=== PATIENT | male | born 1965 | race Caucasian/White ===

== ENCOUNTER 2017-11-21 09:20 | Day surgery (SDC) | payer BC ==
[2017-11-20 09:33] LABS: HEMATOCRIT 46.8 % (42.0-54.0); HEMOGLOBIN 16.6 g/dL (13.5-17.5); MCH 31.4 pg (26.0-34.0); MCHC 35.5 g/dL (31.0-37.0); MCV 88.5 fL (80.0-100.0); MEAN PLATELET VOLUME 12.1 fL (7.4-10.4); RBC 5.29 10x6/uL (4.20-6.10); RDW 12.4 % (11.5-14.5); WBC 6.6 10x3/uL (4.8-10.8)
[2017-11-20 09:55] LABS: CALC OSMOLALITY 287 mosm/kg (275-300); CALCIUM 9.7 mg/dL (8.5-10.1); CARBON DIOXIDE 30.7 mmol/L (21.0-32.0); CHLORIDE - SERUM 105 mmol/L (98-107); GLUCOSE 109 mg/dL (74-106); POTASSIUM - SERUM 4.5 mmol/L (3.5-5.1); SODIUM 143 mmol/L (136-145); UREA NITROGEN 17 mg/dL (7-18); eGFR NON AFRICAN AMERICAN 83 mL/min (90-120)
[~2017-11-21] VITALS: Ht 190.5 cm; Wt 102.1 kg
--- NOTE | ~2017-11-21 | OP ---
PATIENT NAME: ISABELLA PENNINGTON MEDICAL RECORD: [id number] :65 LOCATION:D.OPS ADMISSION DATE: SURGEON: ARNALDO LORENZ MD DATE OF OPERATION: 11/21/2017 PREOPERATIVE DIAGNOSES: 1. Symptomatic ventral hernia. 2. Symptomatic recurrent right inguinal hernia. POSTOPERATIVE DIAGNOSES: 1. Symptomatic incarcerated ventral hernia. 2. Symptomatic recurrent incarcerated right direct inguinal hernia. PROCEDURE: 1. Laparoscopic incarcerated ventral hernia repair with Ventralight ST mesh utilizing the Echo positioning system. 2. Open recurrent incarcerated right direct inguinal hernia repair with bilayered preperitoneal polypropylene mesh. SURGEON: Arnaldo Lorenz MD PARTY HOST/HOSTESS: None. BLOOD LOSS: Minimal. ANESTHESIA: General. COMPLICATIONS: None. The risks, possible complications and alternatives to the procedure were explained to the patient. He elects to proceed. I saw the patient in the holding area. The sites were marked. OPERATIVE COURSE: The patient was conveyed to the operating room electively on 11/21/2017. General anesthesia was induced by the anesthesia staff. The abdomen and genitals were sterilely prepped and draped. A small skin carine was accomplished in the left upper quadrant. A Veress needle was inserted through the skin carine into the peritoneal cavity. CO2 insufflation was begun. Once a sufficient pneumoperitoneum had been achieved, a 12-mm trocar was inserted through an incision in the left upper quadrant. Under direct internal vision utilizing a television camera, a 5-mm trocar was inserted in the left side of the abdomen. A 5-mm trocar was inserted in the right side of the abdomen. During the insertion of the Veress needle and all trocars, there appeared to have been no injury to the bowels, any intraperitoneal or retroperitoneal structures. An abdominal survey was undertaken. There was incarcerated preperitoneal fat within the umbilicus. Utilizing the Harmonic scalpel, I took down the falciform ligament as well as the anterior portion of the triangular ligament of the liver. I cleaned the preperitoneal fat from around the hernia defect. A prevesicular flap was created with the Harmonic scalpel. Intravenous methylene blue was given and there was no leakage of methylene blue indicating no evidence of a bladder injury. A small skin carine was accomplished within the umbilicus. I advanced a OPERATIVE REPORT [id number] ISABELLA PENNINGTON Ventralight ST mesh down through the 12-mm trocar. Through the skin carine at the umbilicus, I advanced a laparoscopic suture passer. I grasped the tail of the mesh and withdrew it up through the skin. I then cut the tubing and it was placed within the inflation device and then inflated. It expanded the mesh nicely and held it up against the anterior abdominal wall. The herniorrhaphy was then accomplished with circumferential firings of the SorbaFix Tacker. The Echo positioning system was then removed in its entirety. I ensured that all portions of the positioning system were removed. I irrigated and aspirated. There was no bleeding even at low pressure of 8. The muscle at the left upper quadrant trocar site was closed with the Juan Daniel-Estuardo suture closure device and 0 Vicryl sutures. The skin at the trocar operative sites were closed with interrupted intracuticular 3-0 Vicryls. The skin at the umbilicus was closed with interrupted 4-0 Vicryl Rapide suture. Attention was then turned to the right inguinal hernia. A transverse incision was accomplished in the right groin. Sharp dissection was carried down through skin and subcutaneous tissue as well as Roger fascia. Scarring from the prior hernia defect was identified. At no time during this operation was there any apparent nervous injury. I incised the external oblique aponeurosis along the direction of its fibers. I bluntly dissected down through the internal oblique and transversus abdominis muscle layers. A preperitoneal pocket was fashioned bluntly. There was no indirect component. There was an incarcerated direct component and the hernia contents were reduced in their entireties. Once I was satisfied with the creation of the preperitoneal pocket, I cut 2 ovals of polypropylene mesh. The 2 ovals were sutured together one on top of the other with a running #1 Surgidacs. I then placed the mesh in the preperitoneal space. Once I was satisfied with placement of the mesh in the preperitoneal space, I allowed the muscular layers to come together over the mesh. The internal oblique and transversus abdominis muscles were then sutured together with horizontal mattress 0 Surgidacs incorporating a portion of the underlying mesh. The external oblique aponeurosis was then closed with running #1 Vicryls. Roger's fascia was approximated with interrupted 3-0 Vicryls. The subdermis was approximated with interrupted 3-0 Vicryls. The skin was approximated with a running intracuticular 4-0 Vicryl. Benzoin and Steri-Strips were applied. The patient was then extubated and conveyed to the post-anesthesia care unit where he was in stable condition. He will be dismissed home on hydrocodone as well as Colace. I will see him in the office in 2-3 weeks. TRANSINT:[id number] Voice Confirmation ID: [id number] DOCUMENT ID: [id number] ARNALDO LORENZ MD at 1816 CC: ARNALDO TORRES and GABY DONOVAN [id number] DICTATION DATE: 11/22/17 1015 BATH STEWARD: 11/22/17 1217 [facility] 11/21/17 [address] [place] [address]
[~2017-11-21 09:20] MED LIST: BAYER CHEWABLE81 MG PO; BYSTOLIC5 MG PO; HYZAAR 100-12.51 TAB PO; PRILOSEC20 MG PO; SINGULAIR10 MG PO; ZANTAC300 MG PO; ZYRTEC10 MG PO
[2017-11-21 09:57] VITALS: BP 144/85; Ht 190.5 cm; Wt 102.1 kg
== END 2017-11-21 20:15 | disposition home or self-care (01) ==
LOC: D.OPS 09:20 → D.PAN 09:45 → D.OPS 09:45
PROVIDERS: Anesthesiology
DX: K43.6 Other and unspecified ventral hernia with obstruction, without gangrene (principal); K40.31 Unilateral inguinal hernia, with obstruction, without gangrene, recurrent; Z01.812 Encounter for preprocedural laboratory examination

== ENCOUNTER 2018-07-14 06:52 | Day surgery (SDC) | payer BC ==
[~2018-07-14] VITALS: Ht 190.5 cm; Wt 104.1 kg
[2018-07-14 07:23] LABS: HEMATOCRIT 45.7 % (42.0-54.0); HEMOGLOBIN 16.4 g/dL (13.5-17.5); MCH 30.9 pg (26.0-34.0); MCHC 35.9 g/dL (31.0-37.0); MCV 86.2 fL (80.0-100.0); MEAN PLATELET VOLUME 11.8 fL (7.4-10.4); RBC 5.3 10x6/uL (4.20-6.10); RDW 12.3 % (11.5-14.5); WBC 7.9 10x3/uL (4.8-10.8)
[2018-07-14 08:10] VITALS: BP 141/89; Ht 190.5 cm; Wt 104.1 kg
--- NOTE | 2018-07-14 14:50 | OP ---
PATIENT NAME: ISABELLA PENNINGTON MEDICAL RECORD: [id number] :65 LOCATION:D.OPS ADMISSION DATE: SURGEON: SUNNY LORENZ MD DATE OF OPERATION: 07/14/2018 PREOPERATIVE DIAGNOSIS: Desires screening colonoscopy. POSTOPERATIVE DIAGNOSES: 1. Desires screening colonoscopy with minimal sigmoid diverticulosis. 2. Two rectal polyps, both sessile polyps that were less than 1 cm in size. PROCEDURES: 1. Total colonoscopy to cecum. 2. Hot biopsy forceps polypectomy times 2. SURGEON: Sunny Lorenz MD ACCOUNT FINANCIAL MANAGER: None. BLOOD LOSS: Minimal. ANESTHESIA: IV sedation. COMPLICATIONS: None. The risks, possible complications, and alternatives to the procedure were explained to the patient. He elects to proceed. ENDOSCOPIC COURSE: The patient was conveyed to endoscopy suite electively on 07/14/2018. IV sedation was induced by the anesthesia staff. The patient was placed in the Herndon position. A digital rectal examination was performed. A colonoscope was inserted through the anus. It was easily advanced to the cecum. The prep was fair. I slowly withdrew the endoscope. I irrigated and aspirated extensively. I dragged the folds. A combination of normal imaging and narrow band imaging were utilized. Two polyps were noted in the rectum and both were removed in their entireties utilizing the hot biopsy forceps polypectomy technique. A retroflexed view was obtained in the rectum. I then unretroflexed the scope and removed it under direct vision. I will see the patient in my office in 2-3 weeks. If either of these polyps was an adenomatous polyp, we will plan for a repeat colonoscopy in 3 years. If there is no glandular component to these rectal polyps, then I will plan for his next colonoscopy to take place in 10 years unless he develops new symptoms such as rectal bleeding. TRANSINT:[id number] Voice Confirmation ID: [id number] DOCUMENT ID: [id number] OPERATIVE REPORT [id number] ISABELLA PENNINGTON ROBERT MD at 1450 CC: SUNNY TORRES [id number] DICTATION DATE: 07/14/18 1016 NEUROPSYCHIATRIST: 07/14/18 1050 [facility] 07/14/18 [place] [address]
--- NOTE | 2018-07-15 11:00 | HP ---
PATIENT: ISABELLA PENNINGTON MEDICAL RECORD: [id number] ACCOUNT: [id number] LOCATION:[facility] : 65 ADMISSION DATE: 07/14/18 PCP: ARNALDO NORWOOD DO HISTORY AND PHYSICAL EXAMINATION CHIEF COMPLAINT: Desires screening colonoscopy. HISTORY OF PRESENT ILLNESS: The patient had no rectal bleeding. No abdominal pain. He is here for screening colonoscopy. His primary care physician is Dr. Norwood. SOCIAL HISTORY: Nonsmoker. ALLERGIES: No known drug allergies. HOME MEDICINES: Zyrtec, Hyzaar, Prilosec, Zantac, Singulair. PAST MEDICAL AND SURGICAL HISTORY: Hypertension as well as gastroesophageal reflux. PHYSICAL EXAMINATION: GENERAL: The patient does not appear acutely ill. He does not appear chronically ill. VITAL SIGNS: Reviewed. EARS: External ears appear normal. EYES: Extraocular movements are intact. NECK: Trachea is midline. CHEST: No intercostal retractions. PULMONARY: Nonlabored, no stridor. IMPRESSION: Desires screening colonoscopy. PLAN: Will be screening colonoscopy. TRANSINT:[id number] Voice Confirmation ID: [id number] DOCUMENT ID: [id number] ARNALDO LORENZ MD at 1100 CC: ARNALDO NORWOOD [id number] DICTATION DATE: 07/14/18 0945 MILKER MACHINE: 07/14/18 1008 [facility] 07/14/18 [facility] [address] [place] [address]
== END 2018-07-14 11:05 | disposition home or self-care (01) ==
LOC: D.OPS 06:52
PROVIDERS: Anesthesiology
DX: Z12.11 Encounter for screening for malignant neoplasm of colon (principal); K57.30 Diverticulosis of large intestine without perforation or abscess without bleeding; K62.1 Rectal polyp; I10 Essential (primary) hypertension; K21.9 Gastro-esophageal reflux disease without esophagitis; Z79.899 Other long term (current) drug therapy

== ENCOUNTER → 2018-08-28 16:44 | Outpatient (CLI) | payer BC ==
[2018-07-14 08:10] VITALS: BMI 28.6
== END | disposition home or self-care (01) ==
LOC: D.CT 16:30
PROVIDERS: ATTEND Family Medicine
DX: R31.0 Gross hematuria (principal)

== ENCOUNTER → 2018-08-28 17:09 | Outpatient (CLI) | payer BC ==
[2018-07-14 08:10] VITALS: BMI 28.6
== END | disposition home or self-care (01) ==
LOC: D.LABREF 17:09
PROVIDERS: ATTEND Urology
DX: R31.9 Hematuria, unspecified (principal)

== ENCOUNTER 2018-09-11 10:46 | Day surgery (SDC) | payer BC ==
[2018-09-10 12:25] LABS: BASOPHILS 0.4 % (0-2); EOSINOPHILS 0.6 % (0-7); HEMATOCRIT 42.4 % (42.0-54.0); HEMOGLOBIN 14.9 g/dL (13.5-17.5); IMMATURE GRANULOCYTES 0.2 % (0-5); MCH 31.2 pg (26.0-34.0); MCHC 35.1 g/dL (31.0-37.0); MCV 88.7 fL (80.0-100.0); MEAN PLATELET VOLUME 11.4 fL (7.4-10.4); NEUTROPHILS 69.8 % (40-80); PLATELET COUNT 146 10x3/uL (130-400); RBC 4.78 10x6/uL (4.20-6.10); RDW 12.5 % (11.5-14.5); WBC 8.1 10x3/uL (4.8-10.8)
[2018-09-10 12:32] LABS: CALC OSMOLALITY 283 mosm/kg (275-300); CARBON DIOXIDE 28.9 mmol/L (21.0-32.0); CHLORIDE - SERUM 105 mmol/L (98-107); GLUCOSE 94 mg/dL (74-106); POTASSIUM - SERUM 4.1 mmol/L (3.5-5.1); SODIUM 141 mmol/L (136-145); UREA NITROGEN 20 mg/dL (7-18); eGFR NON AFRICAN AMERICAN 83 mL/min (90-120)
[~2018-09-11] VITALS: Ht 190.5 cm; Wt 103.9 kg
[~2018-09-11 10:46] MED LIST changes: +OMEPRAZOLE20 M1 PO; -PRILOSEC20 MG PO
[2018-09-11 11:33] VITALS: BP 140/85; Ht 190.5 cm; Wt 103.9 kg
--- NOTE | 2018-09-11 17:06 | OP ---
PATIENT NAME: ISABELLA PENNINGTON MEDICAL RECORD: [id number] :65 LOCATION:D.OPS ADMISSION DATE: SURGEON: ARNALDO SPICER MD DATE OF OPERATION: 09/11/2018 SURGEON: Arnaldo Spicer MD ANESTHESIA: TIVA by Nain Noriega CRNA DIAGNOSES: Maximino hematuria, obstructive benign prostatic hyperplasia. PROCEDURE: Cystoscopy. FINDINGS: Obstructive bilateral lateral prostatic lobes with a vascular prostatic urethra. Single ureteral orifices bilaterally in the bladder. No bladder tumors were seen. ESTIMATED BLOOD LOSS: None. CLINICAL HISTORY: This is a 53-year-old male, who works here at [employer]. He had episodes of painless gross hematuria. This was worked up with urine cytology, which showed no tumor cells. The CT scan showed no abnormalities except for an enlarged prostate. He comes today to have cystoscopy done. He is not allergic to any medications. He was given 2 grams of Ancef director of health education to the OR. DESCRIPTION OF PROCEDURE: The patient was given IV sedation. He was then placed in lithotomy position and prepped and draped. Lidocaine jelly was inserted into the urethra. Cystoscopy was then performed using a 17-Saudi Arabian cystoscope and 30-degree lens. The prostatic urethra was quite vascular and this was the most likely source of his bleeding. No bladder tumors were seen. I did discuss with the patient the possibility of just observing the situation, starting finasteride or doing some surgical intervention to stop any future bleeding. I will see the patient on a p.r.n. basis for followup. TRANSINT:[id number] Voice Confirmation ID: [id number] DOCUMENT ID: [id number] ARNALDO SPICER MD at 1706 CC: [id number] DICTATION DATE: 09/11/[address] POLICE OFFICER: 09/11/18 1414 [facility] 09/11/18 [place] [address]
== END 2018-09-11 14:35 | disposition home or self-care (01) ==
LOC: D.OPS 10:46 → D.PAN 13:00 → D.OPS 13:00
PROVIDERS: ATTEND Urology
DX: N40.1 Benign prostatic hyperplasia with lower urinary tract symptoms (principal); R31.9 Hematuria, unspecified

== ENCOUNTER → 2020-08-14 07:22 | Outpatient (CLI) | payer BC ==
[2018-09-11 11:33] VITALS: BMI 28.6
== END | disposition home or self-care (01) ==
LOC: D.US 07:22
PROVIDERS: ATTEND Internal Medicine Medical Oncology
DX: D69.6 Thrombocytopenia, unspecified (principal)